=== PATIENT | female | born 2000 | race Caucasian/White ===

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

== ENCOUNTER 2024-10-09 07:26 | Emergency (ER) | payer OTHER ==
[~2024-10-09] VITALS: Ht 172.7 cm; Wt 114.8 kg
[2024-10-09] MEDS ORDERED: ALBUTEROL/IPRATROPIUM 3 ML NEB INH ONE ×2 (07:45→08:00)
[2024-10-09] MEDS ORDERED: predniSONE 20 MG TAB PO ONE (08:00)
[2024-10-09] MEDS ORDERED: IPRAT-ALBUT 0.5-3 ML INH (08:15)
[2024-10-09] MEDS ORDERED: PREDNISONE20 MG PO (08:15)
[2024-10-09] MEDS ORDERED: VENTOLIN HFA18 GM INH (08:15)
[2024-10-09 08:34] VITALS: BP 140/78
== END 2024-10-09 08:30 | disposition home or self-care (01) ==
LOC: ED 07:26
DX: J45.901 Unspecified asthma with (acute) exacerbation (principal); Z91.018 Allergy to other foods; Z88.0 Allergy status to penicillin; Z88.8 Allergy status to other drugs, medicaments and biological substances
CPT/HCPCS: 94640; 99284; J7512

== ENCOUNTER 2024-12-03 22:41 | Emergency (ER) | payer OTHER ==
[~2024-12-03] VITALS: Ht 172.7 cm; Wt 113.6 kg
[~2024-12-03 22:41] MED LIST: IPRAT-ALBUT 0.5-3 ML INH; PREDNISONE20 MG PO; VENTOLIN HFA18 GM INH
[2024-12-03 23:01] LABS: BLOOD/HGB, URINE LARGE (Negative); KETONE, URINE NEGATIVE (Negative); LEUK ESTERASE, URINE NEGATIVE (negative); NITRITE, URINE NEGATIVE (negative)
[2024-12-03 23:06] LABS: BACTERIA, URINE RARE /hpf (negative); CRYSTALS, URINE NONE SEEN (0-1+); EPITHELIAL CELLS, URINE SQUAMOUS 1+ /lpf (0-1+)
[2024-12-03 23:07] LABS: CASTS, URINE NONE SEEN \\lpf; REFLEX CULTURE, URINE No (No)
[2024-12-03 23:16] LABS: BASOPHILS 0.5 % (0.1-1.2); EOSINOPHILS 2.9 % (0.7-5.8); LYMPHOCYTES 34.3 % (19.3-51.7); MCH 30.0 PG (25.6-32.2); MCHC 34.1 g/dL (32.2-35.5); MCV 87.9 fL (79.4-94.8); MONOCYTES 8.3 % (4.7-12.5); NEUTROPHILS 53.8 % (34.0-71.1); RBC 4.54 M/uL (3.93-5.22)
[2024-12-04 00:36] VITALS: BP 109/77
== END 2024-12-04 00:37 | disposition home or self-care (01) ==
LOC: ED 22:41
PROVIDERS: Family Medicine
DX: N92.0 Excessive and frequent menstruation with regular cycle (principal); E66.9 Obesity, unspecified; Z68.38 Body mass index [BMI] 38.0-38.9, adult; Z88.0 Allergy status to penicillin; Z88.8 Allergy status to other drugs, medicaments and biological substances; Z91.018 Allergy to other foods
CPT/HCPCS: 36415; 81001; 84702; 85025; 99284

== ENCOUNTER 2025-01-25 13:33 | Emergency (ER) | payer OTHER ==
[~2025-01-25] VITALS: Ht 172.7 cm; Wt 112.7 kg
[2025-01-25] MEDS ORDERED: ALBUTEROL/IPRATROPIUM 3 ML NEB INH PRN (13:45)
[2025-01-25 14:17] LABS: BASOPHILS 0.2 % (0.1-1.2); EOSINOPHILS 1.7 % (0.7-5.8); LYMPHOCYTES 13.2 % (19.3-51.7); MCH 30.0 PG (25.6-32.2); MCHC 34.7 g/dL (32.2-35.5); MCV 86.5 fL (79.4-94.8); MONOCYTES 7.9 % (4.7-12.5); NEUTROPHILS 76.8 % (34.0-71.1); RBC 5.13 M/uL (3.93-5.22)
[2025-01-25 14:35] LABS: ALT (SGPT) 23 U/L (14-59); AST (SGOT) 14 U/L (15-37); GLOMERULAR FILTRATION RATE,EST 113 mL/min (>60); PROTEIN, TOTAL 7.3 g/dL (6.4-8.2); UREA NITROGEN 10 mg/dL (7-18)
[2025-01-25] MEDS ORDERED: predniSONE 20 MG TAB PO ONE (14:45)
[2025-01-25] MEDS ORDERED: BREYNA 80-4.510.3 GM INH (14:45)
[2025-01-25] MEDS ORDERED: IPRAT-ALBUT 0.5-3 ML INH (14:45)
[2025-01-25] MEDS ORDERED: ALBUTEROL/IPRATROPIUM 3 ML NEB INH ONE (14:45)
[2025-01-25] MEDS ORDERED: PREDNISONE20 MG PO (14:45)
[2025-01-25] MEDS ORDERED: VENTOLIN HFA18 GM INH (14:45)
[2025-01-25 14:53] VITALS: BP 130/68
== END 2025-01-25 14:53 | disposition home or self-care (01) ==
LOC: ED 13:33
PROVIDERS: Emergency Medicine
DX: J45.901 Unspecified asthma with (acute) exacerbation (principal); J06.9 Acute upper respiratory infection, unspecified; Z88.0 Allergy status to penicillin; Z91.018 Allergy to other foods; Z88.8 Allergy status to other drugs, medicaments and biological substances
CPT/HCPCS: 36415; 71045; 80053; 83735; 84484; 85025; 94640; 99285-25; J7512

== ENCOUNTER 2025-02-20 03:58 | Emergency (ER) | payer OTHER ==
[~2025-02-20] VITALS: Ht 172.7 cm; Wt 115.5 kg
[~2025-02-20 03:58] MED LIST changes: +BREYNA 80-4.510.3 GM INH
--- OUTSIDE RECORDS SUMMARY | 2025-02-20 04:06 | XMS ---
PreManage Notification: JUSTEN BALLARD Security Hot Walker Events No recent Security Events currently on file CRITERIA MET - [facility] - 2 Visits in 30 Days CARE PROVIDERS Dave Sandy Community Health Worker 06/27/2021-Current PHONE: [phone] -, Fannie- Dentist: Obstetrics Technician [facility] PHONE: [phone] -Orion- Dentist: Obstetrics Technician [facility] PHONE: [phone] JORGE [facility] Current CARE SYSTEM \F\ <UNAVAIL> PHONE: [phone] Matheus has no Care Guidelines for this patient. Wilbur VISIT COUNT (12 MO.) 4 NORMA Marie Statpherd [email or web address] TOTAL 5 NOTE: Visits indicate total known visits. ED/UCC VISIT TRACKING (12 MO.) 02/20/2025 03:59 [facility] [place] TYPE: Emergency COMPLAINT: - BACK PAIN 01/25/2025 13:33 [facility] [place] TYPE: Emergency COMPLAINT: - SHORTNESS OF BREATH DIAGNOSES: - Acute upper respiratory infection, unspecified - Allergy status to other drugs, medicaments and biological substances - Allergy status to penicillin - Allergy to other foods - Shortness of breath - Unspecified asthma with (acute) exacerbation 12/03/2024 22:42 [facility] [place] TYPE: Emergency COMPLAINT: - VAGINAL BLEEDING DIAGNOSES: - Abnormal uterine and vaginal bleeding, unspecified - Allergy status to other drugs, medicaments and biological substances - Allergy status to penicillin - Allergy to other foods - Body mass index [BMI] 38.0-38.9, adult - Excessive and frequent menstruation with regular cycle - Obesity, unspecified 10/09/2024 07:26 [facility] [place] TYPE: Emergency COMPLAINT: - SHORTNESS OF BREATH DIAGNOSES: - Allergy status to other drugs, medicaments and biological substances - Allergy status to penicillin - Allergy to other foods - Shortness of breath - Unspecified asthma with (acute) exacerbation 04/28/2024 12:45 [facility] [place] TYPE: Emergency DIAGNOSES: - Encounter for general adult medical examination without abnormal findings - requesting test INPATIENT VISIT TRACKING (12 MO.) No inpatient visits to display in this time frame [email or web address]
[2025-02-20] MEDS ORDERED: BACLOFEN 10 MG TAB PO ONE (04:15)
[2025-02-20] MEDS ORDERED: KETOROLAC TROMETHAMINE 60 MG/2 ML VIAL IM ONE (04:15)
[2025-02-20] MEDS ORDERED: BACLOFEN10 MG PO (04:50)
[2025-02-20] MEDS ORDERED: methylPREDNISolone 4 MG HOME.PACK PO ONE (05:00)
[2025-02-20 05:09] VITALS: BP 122/84
== END 2025-02-20 05:10 | disposition home or self-care (01) ==
LOC: ED 03:58
DX: S39.012A Strain of muscle, fascia and tendon of lower back, initial encounter (principal); W01.0XXA Fall on same level from slipping, tripping and stumbling without subsequent striking against object, initial encounter; Z79.52 Long term (current) use of systemic steroids; Z79.899 Other long term (current) drug therapy; Z91.018 Allergy to other foods; Z88.0 Allergy status to penicillin; Z88.8 Allergy status to other drugs, medicaments and biological substances
CPT/HCPCS: 72100; 84703; 99283

== ENCOUNTER 2025-03-02 10:51 | Emergency (ER) | payer OTHER ==
[~2025-03-02] VITALS: Ht 172.7 cm; Wt 113.0 kg
[~2025-03-02 10:51] MED LIST changes: +BACLOFEN10 MG PO
--- OUTSIDE RECORDS SUMMARY | 2025-03-02 11:02 | XMS ---
PreManage Notification: JUSTEN BALLARD Security Senior [employer] Developer Events No recent Security Events currently on file CRITERIA MET - [facility] - 2 Visits in 30 Days CARE PROVIDERS Dave Sandy Community Health Worker 06/27/2021-Current PHONE: [phone] -, Fannie- Dentist: Supervising Law Enforcement Analyst [facility] PHONE: [phone] -Orion- Dentist: Supervising Law Enforcement Analyst [facility] PHONE: [phone] JORGE [facility] Current CARE SYSTEM \F\ <UNAVAIL> PHONE: [phone] Matheus has no Care Guidelines for this patient. Wilbur VISIT COUNT (12 MO.) 5 NORMA Marie LIFXpherd [employer] TOTAL 6 NOTE: Visits indicate total known visits. ED/UCC VISIT TRACKING (12 MO.) 03/02/2025 10:51 [facility] [place] TYPE: Emergency COMPLAINT: - BACK PAIN 02/20/2025 03:59 [facility] [place] TYPE: Emergency COMPLAINT: - BACK PAIN DIAGNOSES: - Allergy status to other drugs, medicaments and biological substances - Allergy status to penicillin - Allergy to other foods - Fall on same level from slipping, tripping and stumbling without subsequent striking against object, initial encounter - intermediate accountant (current) use of systemic steroids - Low back pain, unspecified - Other intermediate accountant (current) drug therapy - Strain of muscle, fascia and tendon of lower back, initial encounter 01/25/2025 13:33 [facility] [place] TYPE: Emergency COMPLAINT: - SHORTNESS OF BREATH DIAGNOSES: - Acute upper respiratory infection, unspecified - Allergy status to other drugs, medicaments and biological substances - Allergy status to penicillin - Allergy to other foods - Shortness of breath - Unspecified asthma with (acute) exacerbation 12/03/2024 22:42 [facility] [place] TYPE: Emergency COMPLAINT: - VAGINAL BLEEDING DIAGNOSES: - Abnormal uterine and vaginal bleeding, unspecified - Allergy status to other drugs, medicaments and biological substances - Allergy status to penicillin - Allergy to other foods - Body mass index [BMI] 38.0-38.9, adult - Excessive and frequent menstruation with regular cycle - Obesity, unspecified 10/09/2024 07:26 [facility] [place] TYPE: Emergency COMPLAINT: - SHORTNESS OF BREATH DIAGNOSES: - Allergy status to other drugs, medicaments and biological substances - Allergy status to penicillin - Allergy to other foods - Shortness of breath - Unspecified asthma with (acute) exacerbation 04/28/2024 12:45 [facility] [place] TYPE: Emergency DIAGNOSES: - Encounter for general adult medical examination without abnormal findings - requesting test INPATIENT VISIT TRACKING (12 MO.) No inpatient visits to display in this time frame [email or web address]
[2025-03-02] MEDS ORDERED: BENZONATATE100 MG PO (11:16)
[2025-03-02 12:34] VITALS: BP 132/88
== END 2025-03-02 12:45 | disposition home or self-care (01) ==
LOC: ED 10:51
DX: M54.50 Low back pain, unspecified (principal); G89.29 Other chronic pain; Z79.52 Long term (current) use of systemic steroids; Z79.899 Other long term (current) drug therapy; Z88.0 Allergy status to penicillin; Z91.018 Allergy to other foods; Z88.8 Allergy status to other drugs, medicaments and biological substances
CPT/HCPCS: 99283